=== PATIENT | male | born 1955 | race Caucasian/White ===

== ENCOUNTER 2017-10-11 16:10 | Inpatient (IN) | payer OTHER ==
[~2017-10-11] VITALS: Ht 160 cm; Wt 83.0 kg
[2017-10-18] MEDS ORDERED: DIOVAN160 M1 PO (08:11)
[2017-10-29] MEDS ORDERED: OXYC1TAB9 PO (15:18)
[2017-10-29] MEDS ORDERED: PROTONIX40 MG PO (15:18)
[2017-10-29] MEDS ORDERED: INTESTINEX680 M1 PO (15:18)
== END 2017-10-29 16:23 | disposition home or self-care (01) | DRG 331 ==
LOC: O/R 10-21 05:15 → SURH 10-21 11:45 → SURG 10-21 16:01
PROVIDERS: Surgery
PROC: 07TC4ZZ Resection of Pelvis Lymphatic, Percutaneous Endoscopic Approach (ICD-10-PCS; 2017-10-21)
PROC: 0DTK4ZZ Resection of Ascending Colon, Percutaneous Endoscopic Approach (ICD-10-PCS; principal; 2017-10-21 11:45)
PROC: 4A12X4Z Monitoring of Cardiac Electrical Activity, External Approach (ICD-10-PCS; 2017-10-22)
PROC: 4A033R1 Measurement of Arterial Saturation, Peripheral, Percutaneous Approach (ICD-10-PCS; 2017-10-22)
PROC: 3E0336Z Introduction of Nutritional Substance into Peripheral Vein, Percutaneous Approach (ICD-10-PCS; 2017-10-24)
DX: C18.2 Malignant neoplasm of ascending colon (principal); D50.0 Iron deficiency anemia secondary to blood loss (chronic); I11.9 Hypertensive heart disease without heart failure; G47.33 Obstructive sleep apnea (adult) (pediatric); K29.70 Gastritis, unspecified, without bleeding; K21.9 Gastro-esophageal reflux disease without esophagitis; R73.01 Impaired fasting glucose